=== PATIENT | female | born 1940 | race Caucasian/White ===

== ENCOUNTER 2024-01-27 11:58 | Emergency (ER) | payer MEDICARE, OTHER, SELFPAY ==
[2024-01-27 12:24] VITALS: BP 140/70; PULSE 72; RESP 15; TEMP 36.8; O2SAT 99
--- NOTE | 2024-01-27 12:34 | ED.FEMALEGU ---
HPI - Female Genitourinary General Chief complaint: Urogenital-Female Stated complaint: UTI SYMPTOMS Time Seen by Provider: 01/27/24 12:35 Source: patient, RN notes reviewed and old records reviewed Mode of arrival: ambulatory Limitations: no limitations History of Present Illness HPI Narrative: 83-year-old female presents to the [facility] with complaints burning with urination that started x5 days. Patient denies any CVA tenderness. No abdominal pain or back pain. Denies nausea or vomiting or fevers. Has taken azo Onset (ago): day(s) (5) Related Data Home Medications Medication Instructions Recorded Confirmed All Day Calcium 600 mg PO DAILY 01/27/24 01/27/24 aspirin 81 mg tablet,delayed 81 mg PO DAILY 01/27/24 01/27/24 release clopidogrel 75 mg tablet 75 mg PO DAILY 01/27/24 01/27/24 dulaglutide 1.5 mg/0.5 mL 1.5 mg subcut WEEKLY 01/27/24 01/27/24 subcutaneous pen injector (Trulicity) glucosamine-chondroitin 500 mg-400 1 tablet PO DAILY 01/27/24 01/27/24 mg tablet levothyroxine 25 mcg tablet 25 mcg PO DAILY 01/27/24 01/27/24 metformin 850 mg tablet 850 mg PO BID 01/27/24 01/27/24 metoprolol tartrate 50 mg tablet 50 mg PO BID 01/27/24 01/27/24 rosuvastatin 40 mg tablet 40 mg PO DAILY 01/27/24 01/27/24 therapeutic multivitamin 1 tablet PO DAILY 01/27/24 01/27/24 timolol 0.5 % eye drops 1 drp EACH EYE DAILY 01/27/24 01/27/24 travoprost (benzalkonium) 0.004 % 1 drp ophthalmic (eye) DAILY 01/27/24 01/27/24 eye drops Allergies Allergy/AdvReac Type Severity Reaction Status Date / Time No Known Allergies Allergy Verified 01/27/24 12:16 Review of Systems Review of Systems: All systems reviewed & are unremarkable except as noted in HPI and below Constitutional: Constitutional: Reports no additional constitutional complaints Eyes: Eyes: Reports no additional eye complaints ENT: Reports system reviewed and no additional complaints, except as documented Cardiovascular: Cardiovascular: Reports no additional cardiovascular complaints, Denies chest pain and Denies dyspnea Respiratory: Respiratory: Reports no additional respiratory complaints, Denies chest congestion, Denies cough and Denies dyspnea Gastrointestinal: Gastrointestinal: Reports no additional gastrointestinal complaints, Denies abdominal pain, Denies nausea and Denies vomiting Genitourinary: Genitourinary: Reports as per HPI and Reports dysuria Musculoskeletal: Musculoskeletal: Reports no additional musculoskeletal complaints Integumentary/Breasts: Skin/Breast: Reports system reviewed and no additional complaints, except as docu Neurologic: Reports system reviewed and no additional complaints, except as documented Psychiatric: Psychiatric: Reports no additional psychiatric complaints Allergic/Immunologic: Allergic/Immunologic: Reports no additional allergic/immunologic complaints [facility] Past Medical History Medical History Diabetes High cholesterol History of high blood pressure Hypothyroid Comments At the time of my signature, I reviewed and agree with the nursing past medical, surgical, social, and family history. There is no relevant family history pertinent to the patient complaint. Exam Const: General: cooperative, healthy appearing, comfortable, no acute distress, well developed, alert and well nourished Nutritional Appearance: well nourished Orientation/consciousness: patient oriented x3 Limitations: no limitations HENMT: Head: normal to inspection Ears: hearing grossly normal bilaterally and external ears normal Face/Nose/Sinus: Normal external nose present, Normal nares present, Normal nasal mucous membranes and turbinates present, normal facial exam and face symmetric Face and sinus: normal facial exam and face symmetric Eyes: General: appearance normal, both eyes and all related structures Alignment and Position: alignment normal Periorbital: periorbital find
== END 2024-01-27 12:55 | disposition home or self-care (01) ==
PROVIDERS: Emergency Provider Nurse Practitioner
DX: N30.00 Acute cystitis without hematuria (principal); B96.20 Unspecified Escherichia coli [E. coli] as the cause of diseases classified elsewhere; E11.9 Type 2 diabetes mellitus without complications; E78.00 Pure hypercholesterolemia, unspecified; I10 Essential (primary) hypertension; E03.9 Hypothyroidism, unspecified; Z79.82 Long term (current) use of aspirin; Z79.84 Long term (current) use of oral hypoglycemic drugs
CPT/HCPCS: 81003; 87077; 87086; 87088; 87186; 99213; G0463